=== PATIENT | female | born 1985 | race Caucasian/White ===

== ENCOUNTER 2022-08-10 08:36 | Emergency (ER) | payer OTHER, SELFPAY ==
[2022-08-10 08:46] VITALS: BP 116/73; PULSE 88; RESP 16; TEMP 36.9; O2SAT 98
--- NOTE | 2022-08-10 08:58 | ED.EYEPROB ---
HPI - Eye Problem General Chief complaint: Eye Problems Stated complaint: poss pink eye Time Seen by Provider: 08/10/22 08:58 Source: patient, RN notes reviewed and old records reviewed Mode of arrival: ambulatory Limitations: no limitations History of Present Illness HPI Narrative: 37 year old female who presents to [facility] with complaints symptoms pinkeye to her left eye which started yesterday, Patient reports she has increased watering from her left eye conjunctiva and sclera are red it is itchy she has had currently yellowish crusting on her lashes with yellowish drainage from left eye. Patient says she has had a cough and a little bit of nasal congestion does not have any fever. Patient is breast-feeding at this time concern over what she can take that is safe while breast feeding. MD chief complaint: eye redness Onset (ago): day(s) (1) Eye Symptoms: redness, itching and discharge Treatments Prior to Arrival: none Related Data Home Medications Medication Instructions Recorded Confirmed albuterol sulfate 90 mcg/actuation inhalation 08/10/22 aerosol inhaler estradiol 2 mg tablet mg 08/10/22 Allergies Allergy/AdvReac Type Severity Reaction Status Date / Time No Known Allergies Allergy Verified 08/10/22 08:47 Review of Systems Review of Systems: CONSTITUTIONAL: Denies fever, chills, or sweats. EYES: Denies visual changes. Reports redness,, irritation, discharge from left eye. ENT: Some clear rhinorrhea, congestion, no sore throat, or otalgia. CARDIOVASCULAR: Denies chest pain, palpitations, or edema. RESPIRATORY: Denies cough or dyspnea. SKIN: Denies rash or itching. NEUROLOGIC: Denies headache All systems reviewed & are unremarkable except as noted in HPI and below PMFSH Past Medical History Medical History (Updated 08/17/22 @ 13:44 by Tara Brar NP) Asthma Social History Social History (Updated 08/17/22 @ 13:45 by Tara Brar NP) Smoking status: Never smoker Alcohol intake: unknown Substance use type: does not use Gender identity (if verbalized by the patient): Female Comments At time of signature, agree with nursing past medical, surgical, social and family history. There is no relevant family history pertinent to the presenting complaint Exam Narrative: GENERAL: Well-appearing, well-nourished, and in no acute distress. HEAD: Normocephalic, atraumatic. EYES: PERRLA and EOMI. Upper and lower eyelids unremarkable. No periorbital cellulitis noted. Sclera and conjunctivae injected left eye ENT: Nares clear, clear rhinorrhea no epistaxis. Mucous membranes moist.TM's normal with good light reflex, throat pink with no lesions or exudates, no swelling present NECK: Supple. no lymphadenopathy CHEST: Clear to auscultation. No respiratory distress.no cough noted SAO2 98% on room air HEART: Regular rate and rhythm. No murmur heard. Normal peripheral pulses SKIN: Warm, dry, no rash. NEURO: No focal deficits. Alert and oriented x3. Course Course Emergency Course: Patient is aware of diagnosis, understands and agrees to treatment plan. Anticipatory guidance given. Patient agrees to follow-up as directed and is aware of reasons to seek care at the emergency department. Portions of this record may have been created with voice recognition software Level of Care: Express Care Visit Vital Signs Vital signs: Vital Signs Temperature 36.9 C 08/10/22 08:46 Pulse Rate 88 08/10/22 08:46 Respiratory Rate 16 08/10/22 08:46 Blood Pressure 116/73 08/10/22 08:46 Pulse Oximetry 98 08/10/22 08:46 Oxygen Delivery Room Air 08/10/22 08:46 Temperature 36.9 C 08/10/22 08:46 Pulse Rate 88 08/10/22 08:46 Respiratory Rate 16 08/10/22 08:46 Blood Pressure 116/73 08/10/22 08:46 Pulse Oximetry 98 08/10/22 08:46 Oxygen Delivery Room Air 08/10/22 08:46 Reviewed MDM - Eye Problem MDM Narrative Medical decision making narrative: Consideration of
== END 2022-08-10 09:27 | disposition home or self-care (01) ==
PROVIDERS: Emergency Provider Registered Nurse; PCP Family Medicine
DX: H10.9 Unspecified conjunctivitis (principal)
CPT/HCPCS: 99213; G0463